=== PATIENT | female | born 1985 ===

== ENCOUNTER 2017-06-10 21:47 | Emergency (ER) | payer SELFPAY ==
[2017-06-10 21:47] VITALS: BMI 25.9
[2017-06-10 21:59] VITALS: BP 160/82; PULSE 58; RESP 18; TEMP 98.2; O2SAT 100
--- NOTE | 2017-06-10 23:00 | ED PDOC ---
HPI: CCC, URI, Sore Throat Time Seen by Provider: 06/10/17 21:59 Chief Complaint (Nursing): ENT Problem Chief Complaint (Provider): Ear pain History Per: Patient Additional Complaint(s): Complains of Left eye blinking since this am and now also has right ear pressure like pain since the afternoon. She took advil 400 mg 30 min ago with no improvement. Denies headache, denies any cold symptoms. Past Medical History Reviewed: Nursing Documentation, Vital Signs Vital Signs: Last Vital Signs Temp 98.2 F 06/10/17 21:53 Pulse 58 L 06/10/17 21:53 Resp 18 06/10/17 21:53 BP 160/82 H 06/10/17 21:53 Pulse Ox 100 06/10/17 23:00 - Medical History PMH: No Chronic Diseases - Surgical History Surgical History: No Surg Hx - Family History Family History: States: No Known Family Hx - Living Arrangements Living Arrangements: With Family - Social History Alcohol: None Drugs: Denies - Home Medications Home Medications: Ambulatory Orders Medication Instructions Recorded Aspirin [Aspirin Low Dose] 81 mg PO DAILY 11/24/14 Vit37/Iron/Folic Acid 1 ctb PO DAILY 11/24/14 [[place]] Cyclobenzaprine [Cyclobenzaprine 10 mg PO TID #20 tab 06/11/17 HCl] Ibuprofen [Motrin] 600 mg PO Q6 #20 tab 06/11/17 - Allergies Allergies/Adverse Reactions: Allergies Allergy/AdvReac Type Severity Reaction Status Date / Time No Known Allergies Allergy Verified 06/10/17 21:53 Review of Systems ROS Statement: Except As Marked, All Systems Reviewed And Found Negative ENT: Positive for: Ear Pain Physical Exam - Reviewed Nursing Documentation Reviewed: Yes Vital Signs Reviewed: Yes - Physical Exam Appears: Positive for: Well, Non-toxic, No Acute Distress Head Exam: Positive for: ATRAUMATIC, NORMAL INSPECTION, NORMOCEPHALIC Skin: Positive for: Normal Color, Warm, DRY Eye Exam: Positive for: EOMI, Normal appearance, PERRL ENT: Positive for: Normal ENT Inspection, TM Is/Are (WNL), Other (TMJ tenderness on right). Negative for: Pharyngeal Erythema, Tonsillar Exudate, Tonsillar Swelling Neck: Positive for: Normal, Painless ROM Cardiovascular/Chest: Positive for: Regular Rate, Rhythm Respiratory: Positive for: CNT, Normal Breath Sounds Gastrointestinal/Abdominal: Positive for: Normal Exam, Bowel Sounds, Soft Back: Positive for: Normal Inspection Extremity: Positive for: Normal ROM Neurologic/Psych: Positive for: Alert, Oriented - ECG O2 Sat by Pulse Oximetry: 100 Medical Decision Making Medical Decision Making: Medicated with Flexeril and Percocet Tab PO Warm compresses and soft diet advised Disposition - Clinical Impression Clinical Impression: TMJ arthralgia - Patient ED Disposition Is Patient to be Admitted: No - Disposition Disposition: Routine/Home Disposition Time: 02:14 Condition: STABLE Prescriptions: Cyclobenzaprine [Cyclobenzaprine HCl] 10 mg PO TID #20 tab Ibuprofen [Motrin] 600 mg PO Q6 #20 tab Instructions: Temporomandibular Disorder (ED) Forms: [facility] (Turkmen) - POA Present On Arrival: None
== END 2017-06-11 01:07 | disposition home or self-care (01) ==
LOC: H.ER 21:47
DX: M26.622 Arthralgia of left temporomandibular joint (principal); Z79.82 Long term (current) use of aspirin

== ENCOUNTER 2018-12-25 22:18 | Inpatient (IN) | payer MEDICAID, SELFPAY ==
[2018-12-25 22:48] VITALS: BMI 30.8
[2018-12-25] MEDS ORDERED: Lactated Ringer's 1,000 ML IV ONE (23:26)
[2018-12-26] MEDS ORDERED: Penicillin G 5 Million Unit Vial IVPB ONE (00:09)
[2018-12-26 00:40] LABS: BASO % 0.4 % (0.0-2.0); EOS % 0.4 % (0.0-4.0); HEMOGLOBIN 12.3 g/dL (12.0-16.0); LYMPH # 1.4 K/uL (1.0-4.3); LYMPH % 19.6 % (20.0-40.0); MEAN CELL VOLUME 95.6 fl (81.0-99.0); MEAN CORPUSCULAR HGB CONC 34.5 g/dL (33.0-37.0); MEAN PLATELET VOLUME 9.6 fl (7.2-11.7); MONO # 0.6 K/uL (0.0-0.8); MONO % 8.8 % (0.0-10.0); NEUT % 70.8 % (50.0-75.0); NRBC % 0.1 % (0.0-0.0); RBC 3.74 Mil/uL (3.80-5.20); RED CELL DISTRIBUTION WIDTH 13.4 % (11.5-14.5)
[2018-12-26] MEDS: Lactated Ringer's 1,000 ML IV SCH ×2 (02:25→07:00)
[2018-12-26] MEDS ORDERED: Oxytocin 30 UNIT in NS 500 ml 30 UNITS/500 ML BAG IV ONE ×2 (05:20→13:51)
--- NOTE | 2018-12-26 06:15 | OBADHP ---
Datetime: 12/26/2018 05:41 Presentation-Admit: Vertex FHR - Baseline A Provider: 135 Membranes, Provider: Ruptured Pool Provider: Positive Vital Signs Provider: Reviewed; Within Normal Limits NICHD Variability Prov Fetus A: Moderate 6-25bpm NICHD Accel Fetus A IP Provider: 15X15 FHR Category Provider Fetus A: Category I NICHD Decel Fetus A IP Provider: None Dilatation, Provider: 2-3 Effacement, Provider: 50 Station, Provider: -2 Datetime: 12/25/2018 23:43 Pelvic Type - PN: Adequate Extremities - PN: Normal Abdomen - PN: Normal Back - PN: Normal Breast - PN: Not Done Lungs - PN: Normal Heart - PN: Normal Thyroid - PN: Not Done Neurologic - PN: Normal HEENT - PN: Normal General - PN: Normal Comments, ACOG Physical Exam: SVE: Gross pooling noted, 2/50%/-3 IP Hx Assessment: The History has been Reviewed and is Current IP Chief Complaint: Suspected ruptured membranes Genitourinary Exam: Normal DTRs - PN: Not Done EGA AdmitDate IP: 38.0 IP Admit Plan: Admit to unit; Initiate labor protocol Datetime: 12/25/2018 23:34 Admit Comment, IP Provider: 33 y/o , 37.6 Weeks based on LMP with JAMAL 01/09/19 presents to OBE D with suspected ROM. Patient noticed water broke with gush of clear fluid started coming out at 10 p m which increased on standing up. Denies VB, ot CTx. Good movements. Denies any other complains . Care: [facility], Dr. Lambert, Dr. Mccollum, On ASA for H/O preeclampsia, AMA, GBS +. All records reviewed. PMHx: Denies PSHx: Denies Allergies: NKDA Meds: PNVs SocialHx: Denies smoking/drugs/alcohol F/H: Denies PE: Gen: NAD Chest: RRR, S1S2 present Lungs: CTBA Abdomen: Gravid, NT, BS+ SVE: Gross pooling noted, 2/50%/-3 Ext: No pedal edema Neuro/Psych: AAOx 3 normal mood and affact. A/P: 33 y/o , 37.6 Weeks based on LMP with JAMAL 01/09/19. 37.6 weeks IUP, Early Labor, SROM, GBS +, H/O preeclampsia, AMA, Marginal cord insertion. - Admit to L _ D - EFM and toco monitoring - Nitrous oxide for pain control. - Penicillin G 5 million units followed by Penicillin 2.5 million units Q4hr till delivery. - CBC, T _ S - Monitor for cervical change Case discussed with Dr. Lg Gutierrez, PGY1 OB Hospitalist on-call : Pt was seenand examined with PGY 1. Wll admit, start Ab and re-examine. Discussion about labor, GBS, delivery, pain managment, active management. Her questions answered. DENNIS Amniotic Fluid Color, Provider: Meconium, Heavy Contraction Comments Provider: occ IP Adm Impression: Term, intrauterine ; No Active Labor; Ruptured Membranes
--- NOTE | 2018-12-26 06:18 | OBPN ---
Datetime: 12/26/2018 05:41 IP Progress Impression: Rupture of membranes IP Procedures: Sterile Vag Exam IP Progress Plan: Augmentation; Anticipate Vaginal Delivery Pool Provider: Positive Membranes, Provider: Ruptured FHR - Baseline A Provider: 135 Presentation-Admit: Vertex IP Progress Note Comment: S: Patient seen and examined at bedside. Regular CTx Q 5-7 mins, Cephalic presentation based on last US on 12/18/18 and bedside US on 12/25/18. O VSS SVE: 2-3/50%/-2 A/P: STart patient on Oxytocin for augmentation, COntionue present management as ordered, Monitor for cervical change Case discussed with Dr. Lg Gutierrez. OB Hospitalist on-call : She was given second dose of antibioitcs at 4;20am. She feels occ ctx. S VE 2-3cm - will start pitocin augmentation. MAHNDO Vital Signs Provider: Reviewed; Within Normal Limits NICHD Accel Fetus A IP Provider: 15X15 FHR Category Provider Fetus A: Category I NICHD Variability Prov Fetus A: Moderate 6-25bpm Dilatation, Provider: 2-3 Effacement, Provider: 50 Station, Provider: -2 NICHD Decel Fetus A IP Provider: None Datetime: 12/25/2018 23:34 Amniotic Fluid Color, Provider: Meconium, Heavy Contraction Comments Provider: occ
[2018-12-26] MEDS ORDERED: Lidocaine 1% Inj (20ml) ONE (13:25)
[2018-12-26] MEDS ORDERED: Benzocaine/Menthol SPRAY TOP PRN ×3 (13:34→16:23)
[2018-12-26] MEDS ORDERED: Oxycodone/Acetaminophen 5/325 mg Tab PO PRN ×6 (13:34→16:23)
[2018-12-26] MEDS ORDERED: Lactated Ringer's 1,000 ML IV SCH (13:36)
[2018-12-26] MEDS ORDERED: OXYTOCIN/0.9 % NS 20 UNIT/1,000 ML BAG IV ONE (13:51)
[2018-12-27 07:04] LABS: BASO % 0.2 % (0.0-2.0); EOS # 0.1 K/uL (0.0-0.7); EOS % 0.5 % (0.0-4.0); HEMOGLOBIN 11.8 g/dL (12.0-16.0); LYMPH # 1.5 K/uL (1.0-4.3); LYMPH % 15.5 % (20.0-40.0); MEAN CELL VOLUME 95.8 fl (81.0-99.0); MEAN CORPUSCULAR HEMOGLOBIN 33.5 pg (27.0-31.0); MEAN CORPUSCULAR HGB CONC 34.9 g/dL (33.0-37.0); MEAN PLATELET VOLUME 9.1 fl (7.2-11.7); MONO # 0.7 K/uL (0.0-0.8); MONO % 7.5 % (0.0-10.0); NEUT # 7.6 K/uL (1.8-7.0); NEUT % 76.3 % (50.0-75.0); RBC 3.52 Mil/uL (3.80-5.20); RED CELL DISTRIBUTION WIDTH 13.8 % (11.5-14.5); WHITE BLOOD COUNT 9.9 K/uL (4.8-10.8)
[2018-12-27] MEDS ORDERED: Multivitamin With Minerals Tab PO SCH ×2 (09:00)
[2018-12-27] MEDS: Multivitamin With Minerals Tab PO SCH (09:04)
--- NOTE | 2018-12-27 09:55 | OBPPN ---
Datetime: 12/27/2018 07:56 PP Pain Prov: Within normal limits PP Nausea Prov: Denies PP Flatus Prov: Yes PP BM Prov: No PP Breasts Prov: Not Done PP Heart Prov: Normal PP Lungs Prov: Normal PP Abdomen/Uterus Prov: Normal PP Lochia Prov: Normal PP Vulva/Perineum Prov: Normal PP CVA Tenderness Prov: Normal PP Extremities Prov: Normal PP C/S Incision Prov: Not Applicable PP Progress Prov: Normal PP Impression Prov: Normal progression PP Plan Prov: Continue present management; consult PP Progress Note Prov: 33 y/o , S/P on PPD 1 Patient seen and examined at bedside. No acute events overnight. Pain well controlled with pain me ds. Ambulating well w/o difficulties. Tolerating regular diet well w/o nuasea or vomiting. Passing fl atus and no BM yet Denies any fever, chills, CP, SOB. Lochia like menses. however needs help with . VSS Gen: NAD Chest: RRR, S1S2 present Lungs: CTAB Abdomen: Soft, NT, ND,BS+, Appropriated lower abdominal tederness, Lochia like menses Ext: No calf tenderness Neuro: AAO x 3, Normal mood and affact. A/P: 33 y/o , S/P on PPD 1. Patient afebrile with stable vital signs - Encourage ambulation - Encourage - Ibuprofen and percocet for pain management. - Colace and senokot for constipation - Contine with present Mx - Anticipated D/C on 12/28/18 Case discussed with OB attending Omari Gutierrez, PGY1 Patient seen and examined by me this am. Agree with above resident note. --Dr. Mcgee Vital Signs Provider PP: Reviewed; Within Normal Limits
[2018-12-28] MEDS: Multivitamin With Minerals Tab PO SCH (09:18)
--- NOTE | 2018-12-28 09:26 | OBPPN ---
Datetime: 12/28/2018 06:48 PP Pain Prov: Within normal limits PP Nausea Prov: Denies PP Flatus Prov: Yes PP BM Prov: No PP Breasts Prov: Not Done PP Heart Prov: Normal PP Lungs Prov: Normal PP Abdomen/Uterus Prov: Normal PP Lochia Prov: Normal PP Vulva/Perineum Prov: Normal PP CVA Tenderness Prov: Normal PP Extremities Prov: Normal PP C/S Incision Prov: Not Applicable PP Progress Prov: Normal PP Impression Prov: Normal progression PP Plan Prov: Continue present management; consult PP Progress Note Prov: 33 y/o , S/P on PPD 2 Patient seen and examined at bedside. No acute events overnight. Pain well controlled with pain me ds. Ambulating well w/o difficulties. Tolerating regular diet well w/o nuasea or vomiting. Passing fl atus. Denies any fever, chills, CP, SOB. Lochia like menses. and formula feeding. VSS Gen: NAD Chest: RRR, S1S2 present Lungs: CTAB Abdomen: Soft, NT, ND,BS+, Appropriated lower abdominal tederness, Lochia like menses Ext: No calf tenderness Neuro: AAO x 3, Normal mood and affact. A/P: 33 y/o , S/P on PPD 2 doing well. Patient afebrile with stable vital signs - Encourage ambulation - Encourage - Ibuprofen and percocet for pain management. - Colace and senokot for constipation - Contine with present Mx - Anticipated D/C on 12/28/18 Case discussed with OB attending Omari Gutierrez, PGY1 OB Hospitalist on-call - pt seen on rounds and agree with PGY1 note MAHNDO Vital Signs Provider PP: Reviewed
--- NOTE | 2018-12-28 09:26 | OBDCSUM ---
Datetime: 12/28/2018 06:49 Discharged to, Provider: Home Follow up at, Provider: [facility], Dr. Lambert Disch Instr Activity: Normal activity; May Shower Disch Instr Diet: Regular Discharge Instructions, Provider: Routine instructions given Discharge Diagnosis, Provider: Term Delivered Follow up in weeks, Provider: 4-6 weeks Disch Referrals: None Contraception discussed, Prov: Yes Disch Activity Restrictions: No sexual activity; Nothing in vagina - [place], tampons, douche Discharge Comment, Provider: Discharge Summary DOA: 12/25/2018 EGA: 38.0 wks Diagnosis: S/P on 12/26/18 Summary of : 33 y/o S/P on 12/26/18 L_D summary: Pt is s/p . Pain was well controlled with pain meds. No nausea. Tolerating regula r diet well. Passing flatus, voiding well w/o difficulties. Breast feeding without difficulty. Lochia is similar to menses volume. DOL: 12/26/18 @13.19 NB: Male : [birth year] Weight: 3365 gm Lochia= menses, mild pain, controlled with medications Blood type: O +, Ab neg CBC : 11.8/33.7 Discharge Date: 12/28/2018 Time 10:00 AM Discharge Instructions: -Encourage -Encourage ambulation -Ibuprofen for mild-moderate pain PRN -Continue vitamins at home - ED precautions: If excessive bleeding, pain that does not get relief, fever >100.4, palpitations , SOB, CP or other concerning symptom go to the ED. - PT was urged if feeling sad, mood swing, depression, neglect of baby, suicidal thoughts, homicid al thoughts go to ER or call 911 for help - Pt should go to her Primary care doctor if have difficulty with breast feeding - F/U at [facility] in 4-6 weeks for checkup. -- Omari Gutierrez MD, PGY-1 OB Hospitalist on-call - pt seen on rounds and agree with PGY1 note MAHNDO Contraception after Delivery: IUD
[2018-12-28 15:21] VITALS: BP 112/71; PULSE 66; RESP 20; TEMP 97.9; O2SAT 99
== END 2018-12-28 11:15 | disposition home or self-care (01) | DRG 560 ==
LOC: H.EROB2 22:18 → H.L&D 23:26 → H.OB/GYN 12-26 15:37
PROVIDERS: ADMIT Obstetrics & Gynecology; ATTEND Obstetrics & Gynecology
PROC: 4A1HXCZ Monitoring of Products of Conception, Cardiac Rate, External Approach (ICD-10-PCS; 2018-12-25)
PROC: 10E0XZZ Delivery of Products of Conception, External Approach (ICD-10-PCS; principal; 2018-12-26)
DX: O77.0 Labor and delivery complicated by meconium in amniotic fluid (principal); O99.824 Streptococcus B carrier state complicating childbirth; Z37.0 Single live birth; Z3A.37 37 weeks gestation of pregnancy; K59.00 Constipation, unspecified; O09.523 Supervision of elderly multigravida, third trimester